=== PATIENT | male | born 1960 | race Caucasian/White ===

== ENCOUNTER → 2023-08-20 08:38 | Outpatient (CLI) | payer OTHER, SELFPAY ==
--- NOTE | 2023-08-20 | DI.MRI.S_ITS ---
PROCEDURE: MR WRIST RT WO CON INDICATIONS: PAIN IN RIGHT WRIST TECHNIQUE: Noncontrast coronal proton density fast spin echo and T2 fast spin echo with fat saturation; coronal 3-D gradient echo, axial T1 spin echo and T2 fast spin echo with fat saturation, sagittal T1 spin echo through the wrist. COMPARISON: [facility], CR, XR WRIST 3+ VIEWS RIGHT, 07/20/2023, 14:20. FINDINGS: Image quality: Excellent. Bones and cartilage: There is a nondisplaced , likely chronic fracture of the scaphoid waist. Extensive subchondral cystic changes with marrow edema of the scaphoid, the proximal capitate and the dorsal lunate, favoring degenerative. Large subchondral cystic changes in the distal radius, degenerative as well. Severe degenerative changes of the radiocarpal joint. There is dorsal tilt of the lunate, consistent with dorsal intercalated segment instability (DISI). No acute fracture. Carpal ligaments: The scapholunate and lunotriquetral ligaments appear intact. In the absence of intra-articular contrast, the extrinsic carpal ligaments are not well identified. On sagittal images, the pisohamate ligament appears intact. Triangular fibrocartilage complex: The triangular fibrocartilage appears intact. The adjacent meniscal homolog appears normal in the absence of intra-articular contrast. The extensor carpi ulnaris tendon is normal in location and morphology. Tendons and soft tissues: The carpal tunnel structures appear normal, including the median nerve. The ulnar nerve appears normal within Guyon's canal. Mild tenosynovitis of the 2nd extensor compartment. Mild ulnar subluxation of the extensor carpi ulnaris. No ganglion cyst. IMPRESSION: 1. Nondisplaced, likely chronic fracture of the scaphoid waist. 2. Dorsal intercalated segment instability. 3. 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 4. Mild tenosynovitis of the 2nd extensor compartment. Dictated by: Taylor Rodriguez M.D. on 08/20/2023 at 19:46 Approved by: Taylor Rodriguez M.D. on 08/20/2023 at 19:55
== END ==
PROVIDERS: Referring Provider Orthopaedic Surgery; Visit Provider Orthopaedic Surgery
DX: S62.024A Nondisplaced fracture of middle third of navicular [scaphoid] bone of right wrist, initial encounter for closed fracture (principal); M25.531 Pain in right wrist; M65.831 Other synovitis and tenosynovitis, right forearm
CPT/HCPCS: 73221